=== PATIENT | female | born 1980 | race Caucasian/White ===

== ENCOUNTER 2018-02-17 07:46 | Emergency (ER) | payer BC ==
[2018-02-17 08:10] VITALS: BP 108/75
--- NOTE | 2018-02-17 08:26 | UC ---
Breast Complaint - HPI Summary HPI Summary: "duct in L breast is clogged" x 24 hours. pt's OB wanted to ensure it is not an abscess. no fever, chills or nausea. pt is breast feeding. self txing with warm compress, massage, continued feeding. - History of Current Complaint Hx Obtained From: Patient Timing: Constant Breast Pain Alleviating Factors: Nothing Breast Associated Signs/Symptoms: Redness, Warmth - Allergy/Home Medications Allergies/Adverse Reactions: Allergies Allergy/AdvReac Type Severity Reaction Status Date / Time No Known Allergies Allergy Verified 02/17/18 08:10 Home Medications: Home Medications Ibuprofen TAB* [Advil TAB*] 200 mg PO ONCE PRN 02/17/18 [History Confirmed 02/17] [place] Lecithin 2 tab PO Q3HR PRN 02/17/18 [History Confirmed 02/17/18] PMH/Surg Hx/FS Hx/Imm Hx Previously Healthy: Yes - Surgical History Surgical History: Yes Surgery Procedure, Year, and Place: right breast biopsy, D&C - Family History Known Family History: Positive: Non-Contributory - Social History Lives: With Family Alcohol Use: Occasionally Substance Use Type: None Smoking Status (MU): Never Smoked Tobacco Review of Systems All Other Systems Reviewed And Are Negative: Yes Constitutional: Positive: Negative Skin: Positive: Rash - L BREAST Eyes: Positive: Negative ENT: Positive: Negative Respiratory: Positive: Negative Cardiovascular: Positive: Negative Gastrointestinal: Positive: Negative Genitourinary: Positive: Negative Motor: Positive: Negative Neurovascular: Positive: Negative Musculoskeletal: Positive: Negative Neurological: Positive: Negative Psychological: Positive: Negative Physical Exam Triage Information Reviewed: Yes Appearance: Well-Appearing Vital Signs: Initial Vital Signs Temp 97.5 F 02/17/18 08:05 Pulse 71 02/17/18 08:05 Resp 15 02/17/18 08:05 BP 108/75 02/17/18 08:05 Pulse Ox 100 02/17/18 08:05 Vital Signs Reviewed: Yes Eyes: Positive: Conjunctiva Clear ENT: Positive: Normal ENT inspection Neck: Positive: Supple, Nontender, No Lymphadenopathy Respiratory: Positive: Lungs clear, Normal breath sounds Cardiovascular: Positive: RRR, No Murmur Abdomen Description: Positive: Nontender, No Organomegaly, Soft Bowel Sounds: Positive: Present Musculoskeletal: Positive: ROM Intact Neurological: Positive: Alert Psychological: Positive: Age Appropriate Behavior Skin Exam: Normal, Other - L BREAST IS ENGORGED AND THE UPPER HALF IS RED, WARM AND TENDER. THERE IS CENTRAL INDURATION, POSSIBLE ABSCESS. NO CLAVICULAR OR AXILLARY ADENOPATHY. Breast Pain Course/Dx - Course Course Of Treatment: NO US HERE, PT AGREES TO ER TRANSFER. CASE D/W DR JOHNSON AT [facility] ER, ADVISED OF POSSIBLE L BREAST ABSCESS AND PT COMING VIA CAR. - Diagnoses Provider Diagnoses: Cellulitis of left breast Discharge - Sign-Out/Discharge Documenting (check all that apply): Patient Departure All imaging exams completed and their final reports reviewed: No Studies - Discharge Plan Condition: Stable Disposition: TRANS HIGHER LVL OF CARE FAC Referrals: Moses Santos MD [Primary Care Provider] - Additional Instructions: LEAVE HERE AND GO DIRECTLY TO THE [facility] DISCUSSED - Billing Disposition and Condition Condition: STABLE Disposition: Trans Higher Lvl of Care Fac - Attestation Statements Provider Attestation: I was available for consult. This patient was seen by the [facility]. The patient was not presented to , seen by or examined by wi -Va Abraham MD
== END 2018-02-17 08:33 | disposition short-term general hospital (02) ==
LOC: UCCORT 07:46
DX: N61.0 Mastitis without abscess (principal)
CPT/HCPCS: 99202; G0463

== ENCOUNTER 2018-09-21 09:00 | Emergency (ER) | payer BC ==
[2018-09-21 09:18] VITALS: BP 119/87
--- NOTE | 2018-09-21 09:43 | UC ---
Complaint Female HPI - HPI Summary HPI Summary: 38-year-old female with burning on urination and frequency over the past 3-4 days. She denies any fever or chills. She does have mild low back pain. - History Of Current Complaint Chief Complaint: UCGU Stated Complaint: URINARY Time Seen by Provider: 09/21/18 09:14 Hx Last Menstrual Period: 8/2; this is 2nd menses since ?: No Onset/Duration: Gradual Onset Timing: Intermittent Severity Initially: Mild Severity Currently: Mild Pain Intensity: 2 Character: Burning Aggravating Factor(s): Urination Alleviating Factor(s): Nothing Associated Signs And Symptoms: Positive: Back Pain - Allergies/Home Medications Allergies/Adverse Reactions: Allergies Allergy/AdvReac Type Severity Reaction Status Date / Time No Known Allergies Allergy Verified 09/21/18 09:08 PMH/Surg Hx/FS Hx/Imm Hx Previously Healthy: Yes - Surgical History Surgical History: Yes Surgery Procedure, Year, and Place: right breast biopsy, D&C - Family History Known Family History: Positive: Non-Contributory - Social History Alcohol Use: Rare Substance Use Type: None Smoking Status (MU): Never Smoked Tobacco Review of Systems All Other Systems Reviewed And Are Negative: Yes Genitourinary: Positive: Dysuria, Frequency, Urgency. Negative: Vaginal/Penile Burning, Vaginal/Penile Itching, Vaginal/Penile Discharge, Vaginal/Penile Pain, Vaginal/Penile Tenderness Is Patient Immunocompromised?: No Physical Exam Triage Information Reviewed: Yes Appearance: Well-Appearing, No Pain Distress, Well-Nourished Vital Signs: Initial Vital Signs Temp 98.4 F 09/21/18 09:09 Pulse 74 09/21/18 09:09 Resp 18 09/21/18 09:09 BP 119/87 09/21/18 09:09 Pulse Ox 100 09/21/18 09:09 Vital Signs Reviewed: Yes Respiratory: Positive: Lungs clear, Normal breath sounds, No respiratory distress, No accessory muscle use Cardiovascular: Positive: RRR, No Murmur, Pulses Normal, Brisk Capillary Refill Abdomen Description: Positive: Nontender, No Organomegaly, Soft. Negative: CVA Tenderness (R), CVA Tenderness (L), Distended, Guarding, Hepatomegaly, McBurney' s Point Tenderness, Splenomegaly Bowel Sounds: Positive: Present Musculoskeletal: Positive: Strength Intact, ROM Intact, No Edema Neurological: Positive: Alert, Muscle Tone Normal Psychological Exam: Normal Skin Exam: Normal Complaint Female Dx - Course Course Of Treatment: Urinalysis was positive for urinary tract infection. She does not have a primary care provider therefore the [facility] information was given to her. - Differential Dx/Diagnosis Provider Diagnosis: UTI (urinary tract infection) Discharge - Sign-Out/Discharge Documenting (check all that apply): Patient Departure All imaging exams completed and their final reports reviewed: No Studies - Discharge Plan Condition: Fair Disposition: HOME Prescriptions: Cephalexin CAP* [Keflex 500 CAP*] 500 mg PO TID 7 Days #21 cap Patient Education Materials: Urinary Tract Infection in Women (DC) Referrals: No Primary Care Phys,NOPCP [Primary Care Provider] - [facility] [Outside] Additional Instructions: Increase fluids, if you develop fever, chills, back pain, worsening symptoms, worsening abdominal pain, unable keep the medicine down then you're to go to the emergency room for further treatment. - Billing Disposition and Condition Condition: FAIR Disposition: Home
== END 2018-09-21 09:53 | disposition home or self-care (01) ==
LOC: UCCORT 09:00
DX: N39.0 Urinary tract infection, site not specified (principal)
CPT/HCPCS: 81003; 84702; 87077; 87086; 87186; 99212; G0463